=== PATIENT | female | born 1955 | race Caucasian/White ===

== ENCOUNTER 2023-06-06 08:47 | Outpatient (AMB) | payer BC, SELFPAY ==
--- NOTE | 2023-06-06 08:53 | MHC.OFFVIS ---
Vital Signs 06/06/23 09:01 Height 5 ft 4 in Weight 109 lb BMI 18.7 BP 129/76 Blood Pressure Location Rt brachial Position Sitting Pulse 87 Pulse Source Pulse Oximeter Pulse Oximetry (%) 95 Oxygen Delivery Method Room Air Intake Visit Reasons: low back pain Intake Note: Pain today 7/10 Moving Consultant Required: No Accompanied by: Self / Same As Patient Allergies No Known Allergies Allergy (Verified 06/06/23 09:04) HPI HPI low back pain: Details: Patient is a pleasant 68 years old female with prior history of posterior L4-L5 lumbar fusion (07/2014 [facility]), cervical and lumbar degenerative disc disease, arthritis, chronic pain syndrome, trigeminal neuralgia, left hip bursitis, presents today for initial evaluation of chronic low back pain. Denies any recent trauma, injury or falls. Back pain is axial and also extends to sacral and bilateral lateral hips and also radiates to left lower extremity posteriorly with associated numbness and tingling. She has occasional radiation of pain into right leg as well. Pain is constant, rates at 7/10, can be severe at times. 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 Patient has tried oral medications, including gabapentin, Lyrica, amitriptyline, back injections in 2012 prior to back surgery and physical therapy without any benefit. She reports Vicodin allows her to be less symptomatic and more functional. She takes Ibuprofen daily at bedtime. Pain affects her daily activities, functioning, mobility, sleep, mood, and social interactions. Denies any fever, chills, abdominal or groin pain, bladder or bowel dysfunction or saddle anesthesia. Patient also reports light bilateral facial numbness for about one year. Per PCP referral notes, bilateral facial numbness of a mild degree, no facial droop, brain MRI with finding of possible dural calcification, has pending CTA. Patient is also considering Neurology referral. Location: Lower back pain radiates down left leg Duration: Back pain-5 years, leg pain-2 months Characteristics of symptom or complaint: Tingling, piercing, stabbing, sharp, dull, aching, radiating, numbness Aggravating or associated factors: Movements, daily activities, bending, walking, prolonged standing Relieving factors: Heat, rest, Ibuprofen 800 mg, hydrocodone TID prn Treatment: PT, back and left GTB injections PFS Medical History (Updated 06/06/23 @ 22:30 by GRZEGORZ Adair) Disc disease, degenerative, cervical Anemia Arthritis Bursitis of left hip BPPV (benign paroxysmal positional vertigo) Hyperlipidemia Trigeminal neuralgia Chronic obstructive lung disease Chronic pain syndrome Tobacco dependence Opioid dependence Lumbosacral radiculopathy Low back pain Surgical History (Updated 06/06/23 @ 22:14 by GRZEGORZ Adair) History of lumbar fusion (~2014) Social History (Updated 06/06/23 @ 09:01 by Azucena Nicole) Alcohol intake: never Patient Tobacco Use Status: Current everyday Tobacco user Cigarettes Per Day: 15 Review of Systems Const All systems reviewed & are unremarkable except as noted in HPI and below Physical Exam Vital Signs: Last Vital Signs Pulse 87 06/06/23 09:01 BP 129/76 06/06/23 09:01 Pulse Ox 95 06/06/23 09:01 Oxygen Delivery Method Room Air 06/06/23 09:01 BMI result Body Mass Index 18.7 General: Appears afebrile. Alert and oriented. Mood and affect appropriate. Follows and participates in conversation appropriately. Respiratory effort is unlabored. No cough. Able to transition from sit to stand unassisted. Ambulates with bilaterally normal heel strike and toe off, reports imbalance and weakness left lower extremity. Back/Spine/Pelvis Other: Limited lumbar ROM due to pain. Antalgic gait w/o limping. Lumbar extension and flexion reproduce moderate symptoms. Demonstrates 5/5 strength of quadriceps bilaterally as well as flexion/dorsiflexion of bilateral feet against resistance. 2+ pedal pulses bilaterally. Seated straight leg rise with dorsiflexion positive bilaterally, left worse than right. +1 patellar and achilles reflexes bilaterally. Facet loading test positive bilaterally. Margarito?s, Pelvic compression and Stinchfield tests are positive bilaterally. No groin pain with I/E hip rotations. Mild TTP to left GTB. Valsalva maneuver negative. Cervical Spine: cervical ROM normal, cervical muscular tenderness and No Cervical spine tenderness Thoracic/Lumbar Spine: thoracic and lumbar spine normal to inspection, Thoracic/lumbar spine scar(s), Lasegue's sign positive bilateral and diffuse, pain with thoraco-lumbar ROM, paraspinal muscle tenderness, thoraco-lumbar ROM limited, No thoracic spinal tenderness and lumbar spinal tenderness (L3-S1) Pelvis: no buttock tenderness Sacroiliac joints: bilaterally tender to palpation Results Reviewed Results Reviewed: Assessment & Plan Assessment & Plan (1) Low back pain: Code(s): M54.50 - Low back pain, unspecified Category: Medical (2) Failed back syndrome, lumbar: Code(s): M96.1 - Postlaminectomy syndrome, not elsewhere classified Category: Medical (3) Lumbar radiculopathy: Code(s): M54.16 - Radiculopathy, lumbar region Category: Medical (4) Lumbar degenerative disc disease: Code(s): M51.36 - Other intervertebral disc degeneration, lumbar region Category: Medical (5) Muscle spasm of back: Code(s): M62.830 - Muscle spasm of back Category: Medical (6) Chronic pain syndrome: Code(s): G89.4 - Chronic pain syndrome Category: Medical Plan Discussed treatment options for both her axial low back, radicular pain and failed back syndrome. Lumbar spine MRI results reviewed and noted above. Patient declined diagnostic or therapeutic injections as past back injections were not effective. We also discussed neuromodulation with SCS or ITDD trials vs implants. Patient is not interested in implants. She would like to obtain personal TENS unit, script provided via [facility]. Scripts provided for lidocaine patches and methocarbamol. Side effects and precautions were discussed with patient. Patient will notify our office if she is interested to pursue interventional treatments or non-opioid medical management for chronic pain syndromes. All questions and concerns have been answered and patient agreed with the plan. Follow-up as needed. Medications: New lidocaine 5% 1 patch topically; 30 ea 1RF pain M51.36 - Other intervertebral disc degeneration, lumbar region, M54.16 - Radiculopathy, lumbar region, M54.50 - Low back pain, unspecified, M96.1 - Postlaminectomy syndrome, not elsewhere classified methocarbamol 500 mg PO TID 30 days 90 tabs 0RF muscle spasms M62.830 - Muscle spasm of back, M96.1 - Postlaminectomy syndrome, not elsewhere classified Coding Level of Care Code New Pt Level 4 (97538) Diagnoses Low back pain M54.50 Failed back syndrome, lumbar M96.1 Lumbar radiculopathy M54.16 Lumbar degenerative disc disease M51.36 Muscle spasm of back M62.830 Chronic pain syndrome G89.4
[2023-06-06 09:01] VITALS: BP 129/76; PULSE 87; O2SAT 95; BMI 18.7
== END 2023-06-06 09:32 | disposition home or self-care (01) ==
PROVIDERS: PCP Physician Assistant Medical; Visit Provider Nurse Practitioner Family
DX: M54.50 Low back pain, unspecified (principal); M96.1 Postlaminectomy syndrome, not elsewhere classified; M54.16 Radiculopathy, lumbar region; M51.36 Other intervertebral disc degeneration, lumbar region; M62.830 Muscle spasm of back; G89.4 Chronic pain syndrome
CPT/HCPCS: 99204

== ENCOUNTER → 2023-06-06 08:47 | Outpatient (BNVA) | payer BC, SELFPAY | PROVIDERS: PCP Physician Assistant Medical; Visit Provider Nurse Practitioner Family ==

== ENCOUNTER 2023-07-08 09:54 | Outpatient (REF) | payer BC, SELFPAY | END 2023-07-08 09:55 | disposition home or self-care (01) | LOC: HO.LAB 09:54 | DX: Z13.89 Encounter for screening for other disorder (principal) ==

== ENCOUNTER 2023-08-18 09:23 | Outpatient (AMB) | payer BC, SELFPAY ==
[2023-08-18 09:23] VITALS: BMI 18.4
--- NOTE | 2023-08-18 09:23 | A.OFFVIS_ITS ---
Vital Signs 3 08/18/23 09:23 Height 5 ft 4 in Weight 107 lb BMI 18.4 Intake Visit Reasons: Injection discussion Allergies No Known Allergies Allergy (Verified 08/18/23 09:23) HPI Comments Details: Patient presents today via telehealth encounter for follow-up for persistent low back pain with left-sided sciatica symptoms. She was initially seen in May this year proposed hesitant towards interventional treatments. Patient reports she recently saw her PCP and was recommended to trial therapeutic injection for left radicular symptoms. She denies any recent trauma, injury falls. Reports back pain is localized to her lower spine and radiates into her left buttock and down into her left calf with numbness, tingling, burning, and cramping in her left 5th toe. Denies any recent cough, cold, infection, fever, bladder or bowel dysfunction, saddle anesthesia or other significant changes in medical history since last office visit. PRIOR: Patient is a pleasant 68 years old female with prior history of posterior L4-L5 lumbar fusion (07/2014 [facility]), cervical and lumbar degenerative disc disease, arthritis, chronic pain syndrome, trigeminal neuralgia, left hip bursitis, presents today for initial evaluation of chronic low back pain. Denies any recent trauma, injury or falls. Back pain is axial and also extends to sacral and bilateral lateral hips and also radiates to left lower extremity posteriorly with associated numbness and tingling. She has occasional radiation of pain into right leg as well. Pain is constant, rates at 7/10, can be severe at times. 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 Patient has tried oral medications, including gabapentin, Lyrica, amitriptyline, back injections in 2012 prior to back surgery and physical therapy without any benefit. She reports Vicodin allows her to be less symptomatic and more functional. She takes Ibuprofen daily at bedtime. Pain affects her daily activities, functioning, mobility, sleep, mood, and social interactions. Denies any fever, chills, abdominal or groin pain, bladder or bowel dysfunction or saddle anesthesia. Patient also reports light bilateral facial numbness for about one year. Per PCP referral notes, bilateral facial numbness of a mild degree, no facial droop, brain MRI with finding of possible dural calcification, has pending CTA. Patient is also considering Neurology referral. Location: Lower back pain radiates down left leg Duration: Back pain-5 years, leg pain-2 months Characteristics of symptom or complaint: Tingling, piercing, stabbing, sharp, dull, aching, radiating, numbness Aggravating or associated factors: Movements, daily activities, bending, walking, prolonged standing Relieving factors: Heat, rest, Ibuprofen 800 mg, hydrocodone TID prn Treatment: PT, back and left GTB injections PFSH Medical History Disc disease, degenerative, cervical Anemia Arthritis Bursitis of left hip BPPV (benign paroxysmal positional vertigo) Hyperlipidemia Trigeminal neuralgia Chronic obstructive lung disease Chronic pain syndrome Tobacco dependence Opioid dependence Lumbosacral radiculopathy Low back pain Surgical History History of lumbar fusion (~2014) Social History Alcohol intake: never Patient Tobacco Use Status: Current everyday Tobacco user Cigarettes Per Day: 15 Review of Systems Const All systems reviewed & are unremarkable except as noted in HPI and below ENT Reports Normal hearing present Neuro Reports Normal hearing present and Denies confusion Psych Denies confusion Physical Exam Vital Signs: BMI result Body Mass Index 18.4 Const General: cooperative, alert and awake; No confusion Orientation/consciousness: patient oriented x3 and No confusion Resp Effort & Inspection: able to speak in complete sentences, no audible wheezes and no cough Neuro General: patient oriented x3 and No confusion Cranial nerves: Yes Normal hearing present Cognition (Neuro): normal cognition Psych Mental Status: mental status grossly normal Speech and movement: Clear speech present Affect: normal affect Attitude: cooperative Thought process: Normal thought process present Thought content: Normal thought content present and No Depressive thoughts present Insight: Good insight present (Psych) Judgement: Good judgement present (Psych) Telehealth Telehealth Telehealth Platform: Telephone Location of provider rendering services: practice address Location of patient: address on file Patient Identification confirmed using: Name, : Yes Telehealth method: voice only Patient verbally consented to treatment: Yes Patient verbally consented to billing insurance company: Yes Patient informed of any privacy concerns related to visit: Yes Minutes spent on Phone/Video with Pt.: 13 Results Reviewed Results Reviewed: Assessment & Plan Assessment & Plan (1) Failed back syndrome, lumbar: Code(s): M96.1 - Postlaminectomy syndrome, not elsewhere classified Category: Medical (2) Lumbar radiculopathy: Code(s): M54.16 - Radiculopathy, lumbar region Category: Medical (3) Lumbar degenerative disc disease: Code(s): M51.36 - Other intervertebral disc degeneration, lumbar region Category: Medical Plan For ongoing and persistent radicular low back pain, we will proceed with Caudal KATHARINE with catheter under sedation and with fluoroscopy. Patient has a history of lumbar fusion in 2014. She denies diabetes and denies taking any blood thinners at this time. Expectations, risks and benefits were reviewed. Patient is aware she will be contacted to schedule this procedure. All questions were answered and the patient is in agreement of plan. Follow-up after injections and sooner as needed. I hereby testify that I spent 13 minutes in conversation with this patient as well as with planning and coordinating care for this patient and organizing this note. Coding Level of Care Code Tele Est Pt Level 4 (57293) Diagnoses Failed back syndrome, lumbar M96.1 Lumbar radiculopathy M54.16 Lumbar degenerative disc disease M51.36
== END 2023-08-18 09:29 | disposition home or self-care (01) ==
LOC: HO.PMC 09:23
PROVIDERS: PCP Physician Assistant Medical; Visit Provider Nurse Practitioner Family
DX: M96.1 Postlaminectomy syndrome, not elsewhere classified (principal); M54.16 Radiculopathy, lumbar region; M51.36 Other intervertebral disc degeneration, lumbar region
CPT/HCPCS: 99442

== ENCOUNTER → 2023-08-18 09:23 | Outpatient (BNVA) | payer BC, SELFPAY | PROVIDERS: PCP Physician Assistant Medical; Visit Provider Nurse Practitioner Family ==